=== PATIENT | male | born 1985 | race Caucasian/White ===

== ENCOUNTER 2017-12-01 13:20 | Emergency (ER) | payer OTHER, SELFPAY ==
[2017-12-01] MEDS ORDERED: HYDROCODONE/APAP 5/325 MG TAB ONE (14:01)
--- NOTE | 2017-12-01 14:15 | ER ---
Nurse's Notes [facility] Name: Lefty Lewis Age: 32 yrs Sex: Male : 1985 Arrival Date: 12/01/2017 Time: 13:24 Bed 9 Private MD: None, None Diagnosis: Sprain of ankle Presentation: 12/01 13:27 Presenting complaint: Patient states: Rolled my left ankle about 20 minutes ago, denies la1 pain in foot. Transition of care: patient was not received from another setting of care. Onset of symptoms was December 01, 2017. Risk Assessment: Do you want to hurt yourself or someone else? Patient reports no desire to harm self or others. Initial Sepsis Screen: Does the patient meet any 2 criteria? No. Patient's initial sepsis screen is negative. Does the patient have a suspected source of infection? No. Patient's initial sepsis screen is negative. Care prior to arrival: None. 13:27 Method Of Arrival: Wheelchair la1 13:27 Acuity: HEIDI 4 la1 Historical: - Allergies: 13:28 No Known Allergies; la1 - PMHx: 13:28 Leukemia; Seizures; la1 - Immunization history:: Adult Immunizations up to date. - Social history:: Smoking status: Patient uses tobacco products, denies chronic smoking, but will smoke occasionally. - Ebola Screening: : No symptoms or risks identified at this time. Screenin:45 Abuse screen: Denies threats or abuse. Denies injuries from another. Nutritional iw screening: No deficits noted. Tuberculosis screening: No symptoms or risk factors identified. Fall Risk Fall in past 12 months (25 points). Assessment: 13:42 General: Appears uncomfortable, Behavior is calm, cooperative. Pain: Complains of pain iw in left lateral ankle Pain currently is 9 out of 10 on a pain scale. Neuro: Level of Consciousness is awake, alert, obeys commands, Oriented to person, place, time, situation, Moves all extremities. Cardiovascular: Patient's skin is warm and dry. Respiratory: Respiratory effort is even, unlabored. Musculoskeletal: Range of motion: limited in left ankle Swelling present in left lateral ankle. Vital Signs: 13:28 BP 112 / 64; Pulse 90; Resp 16; Temp 98.2; Pulse Ox 100% on R/A; Weight 86.18 kg; la1 Height 6 ft. 0 in. (182.88 cm); 13:28 Body Mass Index 25.77 (86.18 kg, 182.88 cm) la1 ED Course: 13:24 Patient arrived in ED. mr 13:24 None, None is Private Physician. mr 13:27 Triage completed. la1 13:28 Arm band placed on left wrist. la1 13:42 Beatriz Keene, RN is Primary Nurse. iw 13:44 Rosemarie Rogers FNP-C is [facility]. snw 13:44 Shawn Ryan MD is Attending Physician. snw 14:02 Ankle Left 3 View XRAY In Process Unspecified. EDMS 15:00 Patient has correct armband on for positive identification. iw 15:00 No provider procedures requiring assistance completed. Patient did not have IV access iw during this emergency room visit. Administered Medications: 13:58 Drug: [place] 5 mg-325 mg 1 tabs Route: PO; iw Outcome: 14:14 Discharge ordered by MD. snw 15:03 Discharged to home ambulatory, with crutches, with family. iw 15:03 Condition: good 15:03 Discharge instructions given to patient, family, Instructed on discharge instructions, follow up and referral plans. medication usage, Demonstrated understanding of instructions, follow-up care, medications, Prescriptions given X 2. 15:04 Patient left the ED. iw Signatures: Dispatcher [employer] EDNE Rosemarie Rogers FNP-C FNP-Simona Junior mr Beatriz Keene, RN JAMES iw Redd Alegre RN RN la1
--- NOTE | 2017-12-01 14:15 | EDPHYS ---
Physician Documentation [facility] Name: Lefty Lewis Age: 32 yrs Sex: Male : 1985 Arrival Date: 12/01/2017 Time: 13:24 Bed 9 Private MD: None, None ED Physician Shawn Ryan HPI: 12/01 13:53 This 32 yrs old Male presents to ER via Wheelchair with complaints of Ankle snw Injury. 13:53 The patient presents with pain, that is acute, swelling, tenderness. The complaints snw affect the left ankle. Onset: The symptoms/episode began/occurred suddenly, 1 hour(s) ago. Context: The problem was sustained outdoors, resulted from a mis-step by the patient, The mechanism of injury involved dorsiflexion-extension of the affected ankle. The patient can partially bear weight on the affected extremity. the patient is able to ambulate, with moderate difficulty. Associated signs and symptoms: The patient has no apparent associated signs or symptoms. Severity of symptoms: At their worst the symptoms were moderate, severe. The patient has not experienced similar symptoms in the past. It is unknown whether or not the patient has recently seen a physician. Historical: - Allergies: 13:28 No Known Allergies; la1 - PMHx: 13:28 Leukemia; Seizures; la1 - Immunization history:: Adult Immunizations up to date. - Social history:: Smoking status: Patient uses tobacco products, denies chronic smoking, but will smoke occasionally. - Ebola Screening: : No symptoms or risks identified at this time. ROS: 13:52 Constitutional: Negative for fever, chills, and weight loss, Eyes: Negative for injury, snw pain, redness, and discharge, ENT: Negative for injury, pain, and discharge, Neck: Negative for injury, pain, and swelling, Cardiovascular: Negative for chest pain, palpitations, and edema, Respiratory: Negative for shortness of breath, cough, wheezing, and pleuritic chest pain, Abdomen/GI: Negative for abdominal pain, nausea, vomiting, diarrhea, and constipation, Back: Negative for injury and pain, : Negative for injury, bleeding, discharge, and swelling, Skin: Negative for injury, rash, and discoloration, Neuro: Negative for headache, weakness, numbness, tingling, and seizure. 13:52 MS/extremity: Positive for injury or acute deformity, pain, swelling, of the left lateral ankle. Exam: 13:52 Constitutional: This is a well developed, well nourished patient who is awake, alert, snw and in no acute distress. Head/Face: Normocephalic, atraumatic. Eyes: Pupils equal round and reactive to light, extra-ocular motions intact. Lids and lashes normal. Conjunctiva and sclera are non-icteric and not injected. Cornea within normal limits. Periorbital areas with no swelling, redness, or edema. ENT: Nares patent. No nasal discharge, no septal abnormalities noted. Tympanic membranes are normal and external auditory canals are clear. Oropharynx with no redness, swelling, or masses, exudates, or evidence of obstruction, uvula midline. Mucous membranes moist. Neck: Trachea midline, no thyromegaly or masses palpated, and no cervical lymphadenopathy. Supple, full range of motion without nuchal rigidity, or vertebral point tenderness. No Meningismus. Chest/axilla: Normal chest wall appearance and motion. Nontender with no deformity. No lesions are appreciated. Cardiovascular: Regular rate and rhythm with a normal S1 and S2. No gallops, murmurs, or rubs. Normal PMI, no JVD. No pulse deficits. Respiratory: Lungs have equal breath sounds bilaterally, clear to auscultation and percussion. No rales, rhonchi or wheezes noted. No increased work of breathing, no retractions or nasal flaring. Abdomen/GI: Soft, non-tender, with normal bowel sounds. No distension or tympany. No guarding or rebound. No evidence of tenderness throughout. Back: No spinal tenderness. No costovertebral tenderness. Full range of motion. Skin: Warm, dry with normal turgor. Normal color with no rashes, no lesions, and no evidence of cellulitis. Neuro: Awake and alert, GCS 15, oriented to person, place, time, and situation. Cranial nerves II-XII grossly intact. Motor strength 5/5 in all extremities. Sensory grossly intact. Cerebellar exam normal. Normal gait. Psych: Awake, alert, with orientation to person, place and time. Behavior, mood, and affect are within normal limits. 13:52 Musculoskeletal/extremity: Extremities: grossly normal except: noted in the left lateral ankle: decreased ROM, swelling, tenderness, ROM: limited active range of motion due to pain, in all extremities, Circulation is intact in all extremities. Sensation intact. Vital Signs: 13:28 BP 112 / 64; Pulse 90; Resp 16; Temp 98.2; Pulse Ox 100% on R/A; Weight 86.18 kg; la1 Height 6 ft. 0 in. (182.88 cm); 13:28 Body Mass Index 25.77 (86.18 kg, 182.88 cm) la1 MDM: 13:45 Patient medically screened. snw 14:15 Data reviewed: vital signs, nurses notes. Data interpreted: Pulse oximetry: on room air snw is 100 %. Interpretation: normal. Counseling: I had a detailed discussion with the patient and/or guardian regarding: the historical points, exam findings, and any diagnostic results supporting the discharge/admit diagnosis, radiology results, to return to the emergency department if symptoms worsen or persist or if there are any questions or concerns that arise at home. Special discussion: Based on the history and exam findings, there is no indication for further emergent testing or inpatient evaluation. I discussed with the patient/guardian the need to see the orthopedic surgeon for further evaluation of the symptoms. I discussed with the patient/guardian the need to see the primary care provider for further evaluation of the symptoms. 12/01 13:28 Order name: Ankle Left 3 View XRAY; Complete Time: 14:52 la1 Administered Medications: 13:58 Drug: [place] 5 mg-325 mg 1 tabs Route: PO; iw Disposition: 15:37 Co-signature as Attending Physician, Shawn Ryan MD I agree with the assessment and kdr plan of care. Disposition: 12/01/17 14:14 Discharged to Home. Impression: Sprain of ankle. - Condition is Stable. - Discharge Instructions: Ankle Sprain, Ankle Pain, Cryotherapy. - Prescriptions for Diclofenac Sodium 75 mg Oral Tablet Sustained Release - take 1 tablet by ORAL route 2 times per day; 30 tablet. orphenadrine citrate 100 mg Oral Tablet Sustained Release - take 1 tablet by ORAL route 2 times per day As needed; 20 tablet. - Medication Reconciliation Form, Thank You Letter, Antibiotic Education, Prescription Opioid Use form. - Follow up: Private Physician; When: 2 - 3 days; Reason: Recheck today's complaints, Continuance of care, Re-evaluation by your physician. Follow up: Emergency Department; When: As needed; Reason: Worsening of condition. Signatures: Dispatcher [employer] EDMS Shawn Ryan MD MD kdr Therrien, Shelly, ASSEMBLER METAL [employer]ILDING-C ASSEMBLER [employer]ILDING-Csnw Beatriz Keene, RN RN iw Redd Alegre RN RN la1 Corrections: (The following items were deleted from the chart) 15:02 14:15 Walking boot ordered. snw iw 15:04 14:14 12/01/2017 14:14 Discharged to Home. Impression: Sprain of ankle. Condition is iw Stable. Forms are Medication Reconciliation Form, Thank You Letter, Antibiotic Education, Prescription Opioid Use. Follow up: Private Physician; When: 2 - 3 days; Reason: Recheck today's complaints, Continuance of care, Re-evaluation by your physician. Follow up: Emergency Department; When: As needed; Reason: Worsening of condition. snw
--- NOTE | 2017-12-01 14:47 | RAD REPORT ---
EXAM DESCRIPTION: RAD - Ankle Left 3 View - 12/01/2017 2:00 pm CLINICAL HISTORY: PAIN<Reason For Exam>PAIN Ankle pain, twisting injury COMPARISON: No comparisons<Comparisons>No comparisons FINDINGS: No fracture, dislocation or periosteal reaction. No joint effusion seen. No joint space na rrowing. No soft tissue abnormality. Lateral soft tissue swelling is present. IMPRESSION: Soft tissue swelling with no left ankle fracture.
== END 2017-12-01 15:04 | disposition home or self-care (01) ==
LOC: ER 13:20
DX: S93.402A Sprain of unspecified ligament of left ankle, initial encounter (principal); F17.200 Nicotine dependence, unspecified, uncomplicated; X50.1XXA Overexertion from prolonged static or awkward postures, initial encounter; Y93.01 Activity, walking, marching and hiking; Z85.6 Personal history of leukemia
CPT/HCPCS: 99283

== ENCOUNTER 2018-10-31 19:52 | Emergency (ER) | payer OTHER, SELFPAY ==
[2018-10-31] MEDS ORDERED: TETANUS & DIPHTHERIA TOX,ADULT 0.5 ML VIAL ONE (20:15)
[2018-10-31] MEDS ORDERED: HYDROCODONE/APAP 7.5/325 MG TAB ONE (20:29)
[2018-10-31] MEDS ORDERED: LIDOCAINE 1% MPF 5 ML VIAL ONE (21:16)
--- NOTE | 2018-10-31 21:59 | ER ---
Nurse's Notes [facility] Name: Lefty Lewis Age: 32 yrs Sex: Male : 1985 Arrival Date: 10/31/2018 Time: 19:57 Bed 30 Private MD: Diagnosis: Epilepsy and recurrent seizures;Laceration of lip and oral cavity without foreign body Presentation: 10/31 20:01 Presenting complaint: Significant other states: "He has epilepsy, he had a seizure in aj1 the rest room and fell and hit his face on the cabinet in the bathroom" Girlfriend reports the seizure lasted approximately one minute. Denies missing any recent doses of his seizure medication. Skin tear noted to face, not currently bleeding. Patient also broke his tooth when he fell and his front tooth is loose. Care prior to arrival: None. Mechanism of Injury: Fall from standing position. Trauma event details: Injury occurred in the [facility]. 20:01 Acuity: HEIDI 3 aj1 20:01 Method Of Arrival: Ambulatory aj1 20:06 Transition of care: patient was not received from another setting of care. Onset of aj1 symptoms was October 31, 2018 at 19:15. Risk Assessment: Do you want to hurt yourself or someone else? Patient reports no desire to harm self or others. Initial Sepsis Screen: Does the patient meet any 2 criteria? No. Patient's initial sepsis screen is negative. Does the patient have a suspected source of infection? No. Patient's initial sepsis screen is negative. Triage Assessment: 20:08 General: Appears in no apparent distress. comfortable, Behavior is calm, cooperative, aj1 appropriate for age. Pain: Complains of pain in face Pain does not radiate. Pain currently is 8 out of 10 on a pain scale. Neuro: Level of Consciousness is awake, alert, obeys commands, Oriented to person, place, time, situation, Seizure activity reported prior to arrival. Seizure lasted approximately 1 minutes. Cardiovascular: Patient's skin is warm and dry. Respiratory: Airway is patent Respiratory effort is even, unlabored, Respiratory pattern is regular, symmetrical. Trauma Activation: Not Applicable Physician: ED Physician; Name: ; Notified At: ; Arrived At: Physician: General Surgeon; Name: ; Notified At: ; Arrived At: Physician: Radiology; Name: ; Notified At: ; Arrived At: Physician: Respiratory; Name: ; Notified At: ; Arrived At: Physician: Lab; Name: ; Notified At: ; Arrived At: Historical: - Allergies: 20:07 No Known Allergies; aj1 - Home Meds: 20:07 Clonazepam Oral [Active]; Dilantin Oral 3 tab nightly [Active]; aj1 - PMHx: 20:07 Leukemia; Seizures; aj1 - Immunization history: Last tetanus immunization: unknown. - Social history:: Smoking status: Patient/guardian denies using tobacco. - Ebola Screening: : Patient denies travel to an Ebola-affected area in the 21 days before illness onset. Screenin:01 Abuse screen: Denies threats or abuse. Denies injuries from another. Tuberculosis aj1 screening: No symptoms or risk factors identified. 20:10 Nutritional screening: No deficits noted. Fall Risk Fall in past 12 months (25 points). ch Secondary diagnosis (15 points) No IV (0 pts). Ambulatory Aid- None/Bed Rest/Nurse Assist (0 pts). Gait- Normal/Bed Rest/Wheelchair (0 pts) Mental Status- Oriented to own ability (0 pts). Total Ramesh Fall Scale indicates Low Risk Score (25-44 pts). Fall prevention measures have been instituted. Side Rails Up X 2 Family Present and informed to notify staff if they need to leave bedside As available Patient and Family Educated on Fall Prevention Program and strategies. Primary Survey: 20:01 NO uncontrolled hemorrhage observed. A: The patient is alert. Airway: patent. aj1 Breathing/Chest: Respiratory pattern: regular, Respiratory effort: spontaneous, unlabored. Circulation: Skin color: pink. Disability Alert. 20:30 Exposure/Environment: All clothing and personal items were removed. Forensic evidence ch collection is not deemed to be indicated at this time. Items placed in patient belonging bag. There is no evidence of uncontrolled external bleeding. Obvious injury(ies) are noted at this time: pt has injuries to face only A warming method has been applied: A warm blanket has been provided to the patient. Reassessment Airway Airway Patent Breathing/Chest Respiratory pattern Regular Respiratory effort Spontaneous Unlabored Breath sounds Clear Chest inspection Symmetrical Circulation Pulses Palpable Color [place] Temperature Warm. Assessment: 20:20 Injury Description: pt has skin tear, superficial to R upper eye lid and eyebrown. pt ch has small laceration to R upper eyelid, right above lashes. wound is not bleeding. pt has swelling to R eyebrow, under eye, eye lids, with bruising. pt has superficial abrasions to R cheek. pt has laceration to lateral corner of R upper lip, deep. 20:40 Reassessment: Patient appears in no apparent distress at this time. Patient and/or ch family updated on plan of care and expected duration. Pain level reassessed. Patient is alert, oriented x 3, equal unlabored respirations, skin warm/dry/pink. 21:59 Reassessment: Patient appears in no apparent distress at this time. Patient and/or ch family updated on plan of care and expected duration. Pain level reassessed. Patient is alert, oriented x 3, equal unlabored respirations, skin warm/dry/pink. pt c/o pain to his tooth. Patient states feeling better. Patient states symptoms have improved. Neuro: No deficits noted. Respiratory: No deficits noted. GI: No signs and/or symptoms were reported involving the gastrointestinal system. : No signs and/or symptoms were reported regarding the genitourinary system. EENT: Eyes are tearing on right eye. Derm: Skin is healthy with good turgor, Skin is pink, warm \\T\\ dry. Musculoskeletal: No signs and/or symptoms reported regarding the musculoskeletal system. Circulation, motion, and sensation intact. Injury Description: Laceration sustained to upper lip and mouth is jagged, 0.5 to 2.5 cm long, not bleeding, was sustained 2-4 hours ago. no active bleeding noted at this time. 22:12 Reassessment: Patient appears in no apparent distress at this time. Patient and/or ch family updated on plan of care and expected duration. Pain level reassessed. Patient is alert, oriented x 3, equal unlabored respirations, skin warm/dry/pink. Patient states feeling better. Patient states symptoms have improved. Vital Signs: 20:01 BP 117 / 73; Pulse 101; Resp 20; Temp 98.1; Pulse Ox 99% on R/A; Weight 90.72 kg (R); aj1 Height 6 ft. 0 in. (182.88 cm) (R); Pain 8/10; 21:00 BP 110 / 54; Pulse 82; Resp 16; Pulse Ox 99% on R/A; Pain 8/10; ch 22:04 BP 115 / 66; Pulse 74; Resp 16; Temp 98.2; Pulse Ox 99% on R/A; Pain 6/10; ch 20:01 Body Mass Index 27.12 (90.72 kg, 182.88 cm) aj1 Allison Coma Score: 20:01 Eye Response: spontaneous(4). Verbal Response: oriented(5). Motor Response: obeys aj1 commands(6). Total: 15. 20:06 Eye Response: spontaneous(4). Verbal Response: oriented(5). Motor Response: obeys kb commands(6). Total: 15. Trauma Score (Adult): 20:01 Eye Response: spontaneous(1); Verbal Response: oriented(1); Motor Response: obeys aj1 commands(2); Systolic BP: > 89 mm Hg(4); Respiratory Rate: 10 to 29 per min(4); Allison Score: 15; Trauma Score: 12 ED Course: 19:57 Patient arrived in ED. ds1 20:01 Patient has correct armband on for positive identification. aj1 20:01 Patient maintains SpO2 saturation greater than 95% on room air. aj1 20:04 Triage completed. aj1 20:06 Elsy Huber FNP-C is PHCP. kb 20:06 Rj Hampton MD is Attending Physician. kb 20:07 Arm band placed on. aj1 20:08 Patient placed in an exam room. aj1 20:39 Tyra Rivera, JAMES is Primary Nurse. 20:43 Wound care: to abrasion, located on mouth and middle aspect of right eyebrow and right ch eye was cleaned with with NS per Elsy orders, dressed with Neosporin, steri strips, ice pack applied. Patient tolerated well. 21:50 Assist provider with laceration repair on upper lip that was 2.5 cm. or less using sutures. Set up tray. Performed by Elsy ERAZO Dressed with Neosporin, Patient tolerated well. Patient did not have IV access during this emergency room visit. Administered Medications: 20:18 Drug: Tetanus-Diphtheria Toxoid Adult 0.5 ml {Paper Machine Backtender: [employer]. Exp: 06/22/2020. Lot #: [id number]. } Route: IM; Site: left deltoid; 20:51 Follow up: Response: No adverse reaction 20:30 Drug: [place] (7.5 mg-325 mg) 1 tabs Route: PO; 20:51 Follow up: Response: No adverse reaction; Pain is decreased Outcome: 21:50 Discharged to home ambulatory, with family. 21:50 Condition: improved 21:50 Discharge instructions given to patient, family, Instructed on discharge instructions, follow up and referral plans. medication usage, wound care, Demonstrated understanding of instructions, follow-up care, medications, wound care, Prescriptions given X 1. 21:58 Discharge ordered by . kiko 22:22 Patient left the ED. Signatures: Elsy Huber, WASHROOM ATTENDANT-C WASHROOM ATTENDANT-Tyra Elaine RN RN Paulina Blue RN RN aj1 Dora Burton1 Corrections: (The following items were deleted from the chart) 20:04 20:01 Presenting complaint: Significant other states: "He has epilepsy, he had a aj1 seizure in the rest room and fell and hit his face on the cabinet in the bathroom" Girlfriend reports the seizure lasted approximately one minute. Denies missing any recent doses of his seizure medication. Laceration noted to face, not currently bleeding. Patient also broke his tooth when he fell and his front tooth is loose aj1
--- NOTE | 2018-10-31 21:59 | EDPHYS ---
Physician Documentation [facility] Name: Lefty Lewis Age: 32 yrs Sex: Male : 1985 Arrival Date: 10/31/2018 Time: 19:57 Bed 30 Private MD: ED Physician Rj Hampton HPI: 10/31 20:09 This 32 yrs old Male presents to ER via Ambulatory with complaints of Facial kb Injury, Fall Injury, Seizure. 20:09 The patient presents after having a single isolated seizure, that lasted 1 minute(s). kb Character of seizure(s): Loss of consciousness: the patient experienced loss of consciousness, Motor activity: generalized, shaking all over, Incontinence: none, Apnea: the patient did not experience apnea, Circulation: the patient did not experience evidence of pulse disturbance. Seizure onset: just prior to arrival. Context: the seizure(s) was witnessed, by a significant other, occurred at home, occurred while the patient was standing, Contributing factors: unknown. Seizure Hx: Original onset: since childhood,\E\ Last seizure: The patient's last seizure was approximately 3 month(s) ago. Associated injury: Head/face: abrasion, pain. Current symptoms: Currently, the patient is not experiencing any symptoms, the patient feels back to baseline, no decreased level of consciousness, no confusion, no dysphasia, no headache, no paralysis, no visual changes. The patient has experienced similar episodes in the past, chronically. The patient has not recently seen a physician. Historical: - Allergies: 20:07 No Known Allergies; aj1 - Home Meds: 20:07 Clonazepam Oral [Active]; Dilantin Oral 3 tab nightly [Active]; aj1 - PMHx: 20:07 Leukemia; Seizures; aj1 - Immunization history: Last tetanus immunization: unknown. - Social history:: Smoking status: Patient/guardian denies using tobacco. - Ebola Screening: : Patient denies travel to an Ebola-affected area in the 21 days before illness onset. ROS: 20:08 Constitutional: Negative for fever, chills, and weight loss, ENT: Negative for injury, kb pain, and discharge, Neck: Negative for injury, pain, and swelling, Cardiovascular: Negative for chest pain, palpitations, and edema, Respiratory: Negative for shortness of breath, cough, wheezing, and pleuritic chest pain, Abdomen/GI: Negative for abdominal pain, nausea, vomiting, diarrhea, and constipation, MS/Extremity: Negative for injury and deformity. 20:08 Skin: Positive for abrasion(s), of the middle aspect of right eyebrow. 20:08 Neuro: Positive for seizure activity. Exam: 20:06 Constitutional: This is a well developed, well nourished patient who is awake, alert, kb and in no acute distress. Neck: Trachea midline, no thyromegaly or masses palpated, and no cervical lymphadenopathy. Supple, full range of motion without nuchal rigidity, or vertebral point tenderness. No Meningismus. Chest/axilla: Normal chest wall appearance and motion. Nontender with no deformity. No lesions are appreciated. Cardiovascular: Regular rate and rhythm with a normal S1 and S2. No gallops, murmurs, or rubs. Normal PMI, no JVD. No pulse deficits. Respiratory: Lungs have equal breath sounds bilaterally, clear to auscultation and percussion. No rales, rhonchi or wheezes noted. No increased work of breathing, no retractions or nasal flaring. Abdomen/GI: Soft, non-tender, with normal bowel sounds. No distension or tympany. No guarding or rebound. No evidence of tenderness throughout. MS/ Extremity: Pulses equal, no cyanosis. Neurovascular intact. Full, normal range of motion. Neuro: Awake and alert, GCS 15, oriented to person, place, time, and situation. Cranial nerves II-XII grossly intact. Motor strength 5/5 in all extremities. Sensory grossly intact. Cerebellar exam normal. Normal gait. 20:06 Head/face: Noted is no obvious of injury or deformity except abrasion(s), that are mild, of the middle aspect of right eyebrow, a laceration(s), that is superficial, of the upper lip. 20:06 ENT: Dental exam: loose tooth. Vital Signs: 20:01 BP 117 / 73; Pulse 101; Resp 20; Temp 98.1; Pulse Ox 99% on R/A; Weight 90.72 kg (R); aj1 Height 6 ft. 0 in. (182.88 cm) (R); Pain 8/10; 21:00 BP 110 / 54; Pulse 82; Resp 16; Pulse Ox 99% on R/A; Pain 8/10; ch 22:04 BP 115 / 66; Pulse 74; Resp 16; Temp 98.2; Pulse Ox 99% on R/A; Pain 6/10; ch 20:01 Body Mass Index 27.12 (90.72 kg, 182.88 cm) aj1 Allison Coma Score: 20:01 Eye Response: spontaneous(4). Verbal Response: oriented(5). Motor Response: obeys aj1 commands(6). Total: 15. 20:06 Eye Response: spontaneous(4). Verbal Response: oriented(5). Motor Response: obeys kb commands(6). Total: 15. Trauma Score (Adult): 20:01 Eye Response: spontaneous(1); Verbal Response: oriented(1); Motor Response: obeys aj1 commands(2); Systolic BP: > 89 mm Hg(4); Respiratory Rate: 10 to 29 per min(4); Rantoul Score: 15; Trauma Score: 12 Laceration: 21:57 Wound Repair of 1.5cm ( 0.6in ) subcutaneous laceration to upper lip. Linear shaped.. kb Distal neuro/vascular/tendon intact. Anesthesia: Wound infiltrated with 1 mls of 1% lidocaine. Wound prep: Moderate cleansing, Wound irrigation. Skin closed with 4 5-0 Vicryl using interrupted sutures and sterile technique. Patient tolerated well. MDM: 20:06 Patient medically screened. 20:06 Data reviewed: vital signs, nurses notes. Data interpreted: Pulse oximetry: on room air kb is 99 %. Interpretation: normal. Refusal of service: The patient/guardian displays adequate decision making capability and despite a detailed discussion of alternatives, benefits, risks, and consequences refuses: CT Scan, Pt does not want CT of head/brain or facial bones. 20:18 ED course: Discussed diagnostic studies with pt. Pt would rather not have them done at this time. Has to follow up with his neurologist soon for blood work anyway. Pt states he feels like he normally does after a seizure and does not think it is necessary. Educated to return for any concerns and we could do any necessary tests at that time. Verbal understanding received from pt and significant other. . 21:57 Counseling: I had a detailed discussion with the patient and/or guardian regarding: the historical points, exam findings, and any diagnostic results supporting the discharge/admit diagnosis, the need for outpatient follow up, a neurologist, to return to the emergency department if symptoms worsen or persist or if there are any questions or concerns that arise at home. 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 Exp: 06/22/2020. Lot #: [id number]. } Route: IM; Site: left deltoid; 20:51 Follow up: Response: No adverse reaction 20:30 Drug: Homer (7.5 mg-325 mg) 1 tabs Route: PO; 20:51 Follow up: Response: No adverse reaction; Pain is decreased Disposition: 10/31/18 21:58 Discharged to Home. Impression: Epilepsy and recurrent seizures, Laceration of lip and oral cavity without foreign body. - Condition is Stable. - Discharge Instructions: Mouth Laceration, Kcem-ha-Fpri, Seizure, Adult, [id number]-eb-[id number]. - Prescriptions for Tylenol- Codeine #3 300-30 mg Oral Tablet - take 1 tablet by ORAL route every 6 hours As needed; 15 tablet. - Medication Reconciliation Form, Thank You Letter, Antibiotic Education, Prescription Opioid Use, Work release form form. - Follow up: Emergency Department; When: As needed; Reason: Worsening of condition. Follow up: Private Physician; When: 2 - 3 days; Reason: Recheck today's complaints, Continuance of care, Re-evaluation by your physician. Signatures: Elsy Huber, PIPE PROCESSOR-C PIPE PROCESSOR-Ckb Tyra Rivera, JAMES RN Paulina Blue RN RN aj1 Corrections: (The following items were deleted from the chart) 20:31 20:18 ED course: Discussed diagnostic studies with pt. Pt would rather not have them kb done at this time. Pt states he feels like he normally does after a seizure and does not think it is necessary. Educated to return for any concerns and we could do any necessary tests at that time. Verbal understanding received from pt and significant other. . kb 21:57 20:06 Head/face: Noted is no obvious of injury or deformity except abrasion(s), that kb are mild, of the middle aspect of right eyebrow, kb 22:22 21:58 10/31/2018 21:58 Discharged to Home. Impression: Epilepsy and recurrent seizures; ch Laceration of lip and oral cavity without foreign body. Condition is Stable. Forms are Work release form, Medication Reconciliation Form, Thank You Letter, Antibiotic Education, Prescription Opioid Use. Follow up: Emergency Department; When: As needed; Reason: Worsening of condition. Follow up: Private Physician; When: 2 - 3 days; Reason: Recheck today's complaints, Continuance of care, Re-evaluation by your physician. kb
== END 2018-10-31 22:22 | disposition home or self-care (01) ==
LOC: ER 19:52
PROC: 0CQ0XZZ Repair Upper Lip, External Approach (ICD-10-PCS; principal; 2018-10-31)
DX: S01.511A Laceration without foreign body of lip, initial encounter (principal); S01.512A Laceration without foreign body of oral cavity, initial encounter; W19.XXXA Unspecified fall, initial encounter; Y93.9 Activity, unspecified; Y92.009 Unspecified place in unspecified non-institutional (private) residence as the place of occurrence of the external cause; Z23 Encounter for immunization
CPT/HCPCS: 90471; 90714; 99284

== ENCOUNTER → 2023-05-28 | Emergency (ER) | payer SELFPAY ==
--- OUTSIDE RECORDS SUMMARY | 2023-05-28 08:53 | XMS REPORT | Continuity of Care Document ---
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 [id number] 2021 00:00:00 Problems Condition Name Condition Details Condition Category Status Onset Date Resolution Date Last Treatment Date Treating Clinician Comments Source [id number] Gastroesop hageal reflux disease without esophagiti s Problem [facility] [id number] Seizure disorder Problem [facility] [id number] ALL (acute lymphoblas tic leukemia of ) Problem [facility] [id number] History of acute lymphoblas tic leukemia (ALL) Problem [facility] [id number] Hyperlipid emia, unspecifie d hyperlipid emia type Problem [facility] Allergies, Adverse Reactions, Alerts Allergy Name Allergy Type Status Severity Reaction(s) Onset Date Inactive Date Treating Clinician Comments Source NO KNOWN ALLERGIE S Drug Class Active [facility] Social History Social Habit Start Date Stop Date Quantity Comments Source Sex Assigned At [facility] History of Tobacco Use [facility] Smoking Status Start Date Stop Date Source Unknown if ever smoked [facility] Never Smoker [facility] Medications Ordered Medication Name Filled Medication Name Start Date Stop Date Current Medication? Ordering Clinician Indication Dosage Frequency Signature (SIG) Comments Components Source Atorvastati n Calcium 40 MG Atorvastati n Calcium 40 MG 08-23 00:00: 00 No 1{table t} QD Atorvastat in Calcium 40 MG Atorvastati n Calcium 40 MG Atorvastati n Calcium 40 MG 2021-0 08-23 00:00: 00 No 1{table t} QD Atorvastat in Calcium 40 MG Atorvastati n Calcium 40 MG Atorvastati n Calcium 40 MG 08-23 00:00: 00 No 1{table t} QD Atorvastat in Calcium 40 MG clonazePAM 0.5 MG clonazePAM 0.5 MG No 1{table t_at_be dtime} QD clonazePAM 0.5 MG Vitamin D Vitamin D No Vitamin D Phenytoin Sodium Extended 300 MG Phenytoin Sodium Extended 300 MG No 1{capsu le} QD Phenytoin Sodium Extended 300 MG Centrum Men - Centrum Men - No Centrum Men - Zonisamide 100 MG Zonisamide 100 MG No 1{capsu le} TID Zonisamide 100 MG Phenytoin Sodium Extended 300 MG Phenytoin Sodium Extended 300 MG No 1{capsu le} QD Phenytoin Sodium Extended 300 MG Centrum Men - Centrum Men - No Centrum Men - clonazePAM 0.5 MG clonazePAM 0.5 MG No 1{table t_at_be dtime} QD clonazePAM 0.5 MG Zonisamide 100 MG Zonisamide 100 MG No 1{capsu le} TID Zonisamide 100 MG Vitamin D Vitamin D No Vitamin D Centrum Men - Centrum Men - No Centrum Men - Zonisamide 100 MG Zonisamide 100 MG No 1{capsu le} TID Zonisamide 100 MG clonazePAM 0.5 MG clonazePAM 0.5 MG No 1{table t_at_be dtime} QD clonazePAM 0.5 MG Phenytoin Sodium Extended 300 MG Phenytoin Sodium Extended 300 MG No 1{capsu le} QD Phenytoin Sodium Extended 300 MG Vitamin D Vitamin D No Vitamin D Centrum Men - Centrum Men - No Centrum Men - Zonisamide 100 MG Zonisamide 100 MG No 1{capsu le} TID Zonisamide 100 MG clonazePAM 0.5 MG clonazePAM 0.5 MG No 1{table t_at_be dtime} QD clonazePAM 0.5 MG Phenytoin Sodium Extended 300 MG Phenytoin Sodium Extended 300 MG No 1{capsu le} QD Phenytoin Sodium Extended 300 MG Vitamin D Vitamin D No Vitamin D Vital Signs Vital Name Observation Time Observation Value Comments S ck height 2021-08-23 08:20:00 72 [in_i] Commo n [facility] weight 2021-08-23 08:20:00 219.2 [lb_av] Co [facility] temperature 2021-08-23 08:20:00 97.9 [degF] Com [facility] bmi 2021-08-23 08:20:00 29.73 kg/m2 Comm on [facility] oximetry 2021-08-23 08:20:00 99 % Commo n [facility] respiratory rate 2021-08-23 08:20:00 16 /min [facility] blood pressure systolic 2021-08-23 08:20:00 132 mm[Hg] [facility] blood pressure diastolic 2021-08-23 08:20:00 78 mm[Hg] [facility] height 2021-08-02 15:40:00 72 [in_i] Commo n [facility] weight 2021-08-02 15:40:00 218.6 [lb_av] Co [facility] temperature 2021-08-02 15:40:00 97.7 [degF] Com [facility] bmi 2021-08-02 15:40:00 29.64 kg/m2 Comm on [facility] oximetry 2021-08-02 15:40:00 99 % Commo n [facility] respiratory rate 2021-08-02 15:40:00 16 /min [facility] blood pressure systolic 2021-08-02 15:40:00 124 mm[Hg] [facility] blood pressure diastolic 2021-08-02 15:40:00 80 mm[Hg] [facility] Procedures Procedure Date / Time Performed Performing Clinicia n Source XR WRIST 3+ VW LEFT 2021-08-04 16:54:00 Naima Hassan [facility] Encounters Start Date/Time End Date/Time Encounter Type Admission Type Attending [facility] Care Facility Care Department Encounter ID Source 2021-10-19 08:04:01 Outpatient [facility] [id number] [facility] 2021-10-07 10:17:02 Outpatient Hassan Naima [facility] [id number] [facility] 2021-08-02 14:59:05 Outpatient Naima Hassan [facility] [id number] [facility] 2023-04-24 16:53:57 2023-04-24 16:53:57 Outpatient SFA SFA [id number] Willam Vaughan Khoa 2022-11-06 15:30:49 2022-11-06 15:30:49 Outpatient SFA SFA [id number] Willam Vaughan Khoa 2022-07-14 08:18:26 2022-07-14 08:18:26 Outpatient SFA SFA [id number] Willam Vaughan Khoa 2022-07-13 16:33:19 2022-07-13 16:33:19 Outpatient SFA SFA [id number] Willam Vaughan Khoa 2022-07-12 15:03:22 2022-07-12 15:03:22 Outpatient SFA SFA [id number] Willam Vaughan Khoa 2022-07-11 00:00:00 2022-07-11 00:00:00 (TEL) [facility] [id number] [facility] 2021-08-23 00:00:00 2021-08-23 00:00:00 OFFICE VISIT ESTAB PT LEVEL 3 [facility] [id number] [facility] 2021-08-23 00:00:00 2021-08-23 00:00:00 (TEL) [facility]LMLC STL[facility] [id number] [facility] 2021-08-04 11:40:59 2021-08-04 23:59:00 Outpatient R RADIOLOGY [facility] [id number] [facility] 2021-08-04 11:30:00 2021-08-04 23:59:00 Hospital Encounter Radiology [facility] [id number] [facility] 2021-08-02 00:00:00 2021-08-02 00:00:00 (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 New pathology staff will provide uninterrupted, excellent patient care and clinical consultation. See URL: [email or web address]. UNLESS OTHERWISE INDICATED, ALL TESTING PERFORMED AT [facility] [address] [place] [id number] CEMENT PAVER: GIOVANNI ROACH M.D. CLIA NUMBER [id number] [facility]. [id number] COMPREHENSIVE METABOLIC [id number] 03:59:26* Test Item Value Reference Range Interpretation Comme nts GLUCOSE (test code = 2216) 94 MG/DL 70-99 BUN (test code = 2207) 18 MG/DL 6-20 CREATININE (test code = 2213) 0.98 MG/DL 0.80-1.40 eGFR (2020 CKD-EPI) (test code = ) 104 ML/MIN/1.73 >60 CALC BUN/CREAT (test code = 2234) 18 RATIO 6-28 SODIUM (test code = 2230) 142 MEQ/L 133-146 POTASSIUM (test code = 2227) 4.8 MEQ/L 3.5-5.4 CHLORIDE (test code = 2214) 106 MEQ/L 95-107 CARBON DIOXIDE (test code = 2205) 27 MEQ/L 19-31 CALCIUM (test code = 2208) 9.9 MG/DL 8.5-10.5 PROTEIN, TOTAL (test code = 2228) 7.4 G/DL 6.1-8.3 ALBUMIN (test code = 2200) 4.9 G/DL 3.5-5.2 CALC GLOBULIN (test code = 2239) 2.5 G/DL 1.9-3.7 CALC A/G RATIO (test code = 2233) 2.0 RATIO 1.0-2.6 BILIRUBIN, TOTAL (test code = 2206) 0.3 MG/DL See_Comment [Automated me ssage] The system which generated this result transmitted reference range: <=1.2. The reference range was not used to interpret this result as normal/abnormal. ALKALINE PHOSPHATASE (test code = 2203) 168 U/L 40-112 H AST (test code = 2217) 23 U/L 9-50 ALT (test code = 2219) 45 U/L 5-50 LIPID [id number] 03:59:26* Test Item Value Reference Range Interpretation Comme nts CHOLESTEROL (test code = 0) 270 MG/DL <200 H TRIGLYCERIDES (test code = 2231) 142 MG/DL <150 HDL CHOLESTEROL (test code = 2219) 37 MG/DL >39 L CALC LDL CHOL (test code = 2236) 203 MG/DL <100 H NOTE: CALCULATED LDL IS BASED ON JUAN-SETH METHOD WHICHINCLUDES ADJUSTABLE TRIGLYCERIDE:VLDL CHOLESTEROL RATIO.THIS FACTOR VARIES BY MEASURED TRIGLYCERIDE AND NON-HDLCHOLESTEROL CONCENTRATIONS WITH INCREASED CALCULATED LDL SEENIN HIGHER TRIGLYCERIDE OR LOWER NON-HDL SPECIMENS. FOR MOREINFORMATION, SEE CLIENT ANNOUNCEMENT AT [email or web address] RATIO LDL/HDL (test code = 2238) 5.49 RATIO <3.55 H CBC W/AUTO DIFF WITH [id number] 02:02:22* Test Item Value Reference Range Interpretation Comme nts WBC (test code = 1001) 5.0 K/UL 3.5-11.0 RBC (test code = 1002) 5.14 M/UL 4.50-6.10 HEMOGLOBIN (test code = 1003) 15.4 G/DL 13.5-17.0 HEMATOCRIT (test code = 1004) 45.3 % 40.0-51.0 MCV (test code = 1005) 88.1 fL 80.0-99.0 MCH (test code = 1006) 30.0 PG 25.0-33.0 MCHC (test code = 1007) 34.0 G/DL 31.0-36.0 RDW (test code = 1038) 12.9 % 11.5-15.0 NEUTROPHILS (test code = 1008) 57.2 % LYMPHOCYTES (test code = 1010) 31.4 % MONOCYTES (test code = 1011) 8.4 % EOSINOPHILS (test code = 1012) 1.8 % BASOPHILS (test code = 1013) 0.8 % IMMATURE GRANULOCYTES (test code = 1036) 0.4 % NUCLEATED RBCS (test code = 1065) 0.0 /100 WBC'S See_Comment [Automated [employer]] The system which generated this result transmitted reference range: 0.0. The reference range was not used to interpret this result as normal/abnormal. PLATELET COUNT (test code = 1015) 356 K/UL 130-400 ABSOLUTE NEUTROPHILS (test code = 1066) 2.86 K/UL 1.50-7.50 ABSOLUTE LYMPHOCYTES (test code = 1067) 1.57 K/UL 1.00-4.00 ABSOLUTE MONOCYTES (test code = 1068) 0.42 K/UL 0.20-1.00 ABSOLUTE EOSINOPHILS (test code = 1040) 0.09 K/UL 0.00-0.50 ABSOLUTE BASOPHILS (test code = 1069) 0.04 K/UL 0.00-0.20 ABS IMMATURE GRANULOCYTES (test code = 1020) 0.02 K/UL 0.00-0.10 ABS NUCLEATED RBCS (test code = 40931) 0.00 K/UL 0.00-0.11
[2023-05-28 09:17] LABS: Hematocrit 42.8 % (39.6-49.0); Lymphocytes % 22.8 % (15.3-44.8); MCV 90.6 fL (80-100); MPV 8.2 fL (7.6-11.3); Platelets 244 thou/uL (152-406); RBC Red Blood Cell Count 4.73 M/uL (4.33-5.43)
[2023-05-28 09:32] LABS: Albumin 4.1 g/dL (3.4-5.0); Bilirubin Total 0.2 mg/dL (0.2-1.0); Potassium 4.4 mEq/L (3.5-5.1); Protein, Total 7.3 g/dL (6.4-8.2)
--- NOTE | 2023-05-28 09:47 | ER ---
Nurse's Notes [facility] Name: Lefty Lewis Age: 37 yrs Sex: Male : 1985 Arrival Date: 05/28/2023 Time: 08:50 Bed 7 Private MD: Diagnosis: Breakthrough seizure Presentation: 05/28 08:54 Chief complaint: EMS states: witnessed seizure at work, pt was seat belted into iw passenger side of vehicle, has hx of seizures, not missed any doses of meds, last seizure was 6 months ago , pt c/o mild headache, did not hi head, A\T\O X 4. Coronavirus screen: At this time, the client does not indicate any symptoms associated with coronavirus-19. Ebola Screen: Patient negative for fever greater than or equal to 101.5 degrees Fahrenheit, and additional compatible Ebola Virus Disease symptoms Patient denies exposure to infectious person. Patient denies travel to an Ebola-affected area in the 21 days before illness onset. No symptoms or risks identified at this time. Initial Sepsis Screen: Does the patient meet any 2 criteria? No. Patient's initial sepsis screen is negative. Does the patient have a suspected source of infection? No. Patient's initial sepsis screen is negative. Risk Assessment: Do you want to hurt yourself or someone else? Patient reports no desire to harm self or others. Onset of symptoms was May 28, 2023. 08:54 Method Of Arrival: EMS: [facility] iw 08:54 Acuity: HEIDI 3 iw Historical: - Allergies: 08:56 No Known Allergies; iw - Home Meds: 08:56 phenytoin 100 mg Oral 4 tabs daily [Active]; zonisamide 100 mg oral capsule 4 caps iw daily [Active]; - PMHx: 08:56 Leukemia; Seizures; iw - Immunization history:: Adult Immunizations not up to date. - Social history:: Smoking status: Patient reports the use of cigarette tobacco products, denies chronic smoking, but will smoke occasionally. - Family history:: not pertinent. Screenin:01 [facility] ED Fall Risk Assessment (Adult) Score/Fall Risk Level 0 - 2 = Low Risk. Abuse iw screen: Denies threats or abuse. Denies injuries from another. Nutritional screening: No deficits noted. Tuberculosis screening: No symptoms or risk factors identified. Assessment: 09:01 General: Appears in no apparent distress. Behavior is calm, cooperative. Pain: iw Complains of pain in head. Neuro: Level of Consciousness is awake, alert, obeys commands, Oriented to person, place, time, situation, Seizure activity reported prior to arrival. Neuro: Moves all extremities. Full function. Cardiovascular: Patient's skin is warm and dry. Respiratory: Respiratory effort is even, unlabored, Respiratory pattern is regular, symmetrical. GI: Abdomen is flat, non-distended. EENT: No signs and/or symptoms were reported regarding the EENT system. Derm: Skin is intact, is healthy with good turgor. Musculoskeletal: Range of motion: intact in all extremities. 10:17 Reassessment: Patient appears in no apparent distress at this time. Patient and/or iw family updated on plan of care and expected duration. Pain level reassessed. Patient is alert, oriented x 3, equal unlabored respirations, skin warm/dry/pink. Patient states feeling better. Patient states symptoms have improved. Vital Signs: 08:54 BP 125 / 81; Pulse 99; Resp 16; Pulse Ox 100% on R/A; Weight 95.25 kg; Height 6 ft. 0 iw in. ; 10:17 BP 115 / 72; Pulse 74; Resp 16; Pulse Ox 99% on R/A; iw 08:54 Body Mass Index 28.48 (95.25 kg, 182.88 cm) iw Allison Coma Score: 10:20 Eye Response: spontaneous(4). Motor Response: obeys commands(6). Verbal Response: iw oriented(5). Total: 15. ED Course: 08:54 Patient arrived in ED. iw 08:54 Beatriz Keene, RN is Primary Nurse. iw 08:55 Deandre Garnica MD is Attending Physician. rt 08:56 Triage completed. iw 08:58 Arm band placed on. iw 09:02 Seizure precautions initiated. Client placed on continuous cardiac and pulse oximetry iw monitoring. NIBP monitoring applied. 09:02 No provider procedures requiring assistance completed. iw 09:15 Initial lab(s) drawn, by me, sent to lab. Inserted saline lock: 20 gauge in right iw antecubital area, using aseptic technique. Blood collected. 10:18 IV discontinued, intact, bleeding controlled, No redness/swelling at site. Pressure iw dressing applied. 10:20 Provided Education on: . iw Administered Medications: No medications were administered Medication: 09:02 VIS not applicable for this client. iw Outcome: 09:46 Discharge ordered by MD. rt 10:18 Discharged to home ambulatory, iw 10:18 Condition: good 10:18 Discharge instructions given to patient, Instructed on discharge instructions, follow up and referral plans. Demonstrated understanding of instructions, follow-up care, 10:20 Patient left the ED. iw Signatures: Beatriz Keene RN RN iw Deandre Garnica MD MD rt Corrections: (The following items were deleted from the chart) : 08:30 Inserted saline lock: 20 gauge in right antecubital area, using aseptic iw technique. Blood collected. iw : 08:30 Initial lab(s) drawn, by me, sent to lab. iw iw
--- NOTE | 2023-05-28 09:47 | EDPHYS ---
Physician Documentation [facility] Name: Lefty Lewis Age: 37 yrs Sex: Male : 1985 Arrival Date: 05/28/2023 Time: 08:50 Bed 7 Private MD: ED Physician Deandre Garnica HPI: 05/28 08:58 This 37 yrs old Male presents to ER via EMS with complaints of Seizure. rt 08:58 Patient presents to the ED with 1 seizure episode. His seizures are reasonably rt well-controlled with Zonegran Dilantin. Patient was in the passenger side of a vehicle, had a brief seizure with postictal state. Denies any trauma. States that the postictal state seems improving, patient is was at baseline. He denies any complaints at this time, reports medication adherence and denies recent illness. Symptoms are moderate in severity, no other aggravating elevating factors.. Historical: - Allergies: 08:56 No Known Allergies; iw - Home Meds: 08:56 phenytoin 100 mg Oral 4 tabs daily [Active]; zonisamide 100 mg oral capsule 4 caps iw daily [Active]; - PMHx: 08:56 Leukemia; Seizures; iw - Immunization history:: Adult Immunizations not up to date. - Social history:: Smoking status: Patient reports the use of cigarette tobacco products, denies chronic smoking, but will smoke occasionally. - Family history:: not pertinent. ROS: 08:58 Constitutional: Negative for fever, chills, and weight loss, Eyes: Negative for injury, rt pain, redness, and discharge, Cardiovascular: Negative for chest pain, palpitations, and edema, Respiratory: Negative for shortness of breath, cough, wheezing, and pleuritic chest pain, Abdomen/GI: Negative for abdominal pain, nausea, vomiting, diarrhea, and constipation, MS/Extremity: Negative for injury and deformity, Skin: Negative for injury, rash, and discoloration, Psych: Negative for depression, anxiety, suicide ideation, homicidal ideation, and hallucinations, 08:58 Neuro: Positive for seizure activity, Negative for headache, Exam: 08:58 Constitutional: This is a well developed, well nourished patient who is awake, alert, rt and in no acute distress. Head/Face: Normocephalic, atraumatic. Chest/axilla: Normal chest wall appearance and motion. Nontender with no deformity. No lesions are appreciated. Cardiovascular: Regular rate and rhythm with a normal S1 and S2. No gallops, murmurs, or rubs. Normal PMI, no JVD. No pulse deficits. Respiratory: Lungs have equal breath sounds bilaterally, clear to auscultation and percussion. No rales, rhonchi or wheezes noted. No increased work of breathing, no retractions or nasal flaring. Abdomen/GI: Soft, non-tender, with normal bowel sounds. No distension or tympany. No guarding or rebound. No evidence of tenderness throughout. Skin: Warm, dry with normal turgor. Normal color with no rashes, no lesions, and no evidence of cellulitis. MS/ Extremity: Pulses equal, no cyanosis. Neurovascular intact. Full, normal range of motion. Neuro: Awake and alert, GCS 15, oriented to person, place, time, and situation. Cranial nerves II-XII grossly intact. Motor strength 5/5 in all extremities. Sensory grossly intact. Cerebellar exam normal. Normal gait. Psych: Awake, alert, with orientation to person, place and time. Behavior, mood, and affect are within normal limits. Vital Signs: 08:54 BP 125 / 81; Pulse 99; Resp 16; Pulse Ox 100% on R/A; Weight 95.25 kg; Height 6 ft. 0 iw in. ; 10:17 BP 115 / 72; Pulse 74; Resp 16; Pulse Ox 99% on R/A; iw 08:54 Body Mass Index 28.48 (95.25 kg, 182.88 cm) iw Allison Coma Score: 10:20 Eye Response: spontaneous(4). Motor Response: obeys commands(6). Verbal Response: iw oriented(5). Total: 15. MDM: 08:55 Patient medically screened. rt 09:47 Differential diagnosis: Seizure disorder, electrolyte disturbance. Data reviewed: vital rt signs, nurses notes, lab test result(s). Test considered but Not performed: CT: No trauma, pre-existing seizure disorder history, CT scan of the head not indicated. Care significantly affected by the following chronic conditions: Seizure disorder. Counseling: I had a detailed discussion with the patient and/or guardian regarding the historical points, exam findings, and any diagnostic results supporting the discharge/admit diagnosis, lab results, the need for outpatient follow up, to return to the emergency department if symptoms worsen or persist or if there are any questions or concerns that arise at home. Response to treatment: the patient's symptoms have resolved after treatment. 05/28 08:55 Order name: CBC with Diff; Complete Time: :33 rt 05/28 08:55 Order name: CMP; Complete Time: : rt Administered Medications: No medications were administered Disposition Summary: 05/28/23 09:46 Discharge Ordered Notes: Location: Home rt Problem: an acute exacerbation rt Symptoms: have improved rt Condition: Stable rt Diagnosis - Breakthrough seizure rt Followup: rt - With: Private Physician - When: 2 - 3 days - Reason: Discharge Instructions: - Discharge Summary Sheet rt - Seizure, Adult rt Forms: - Medication Reconciliation Form rt - Thank You Letter rt - Antibiotic Education rt - Prescription Opioid Use rt - Patient Portal Instructions rt - Leadership Thank You Letter rt Signatures: Dispatcher [employer] Steven Monique MD MD cha Williams, Irene, JAMES RN Deandre Lindsay MD MD rt
[2023-05-28 10:52] VITALS: BP 115/72; O2SAT 99
== END ==
LOC: ER 08:50
DX: G40.901 Epilepsy, unspecified, not intractable, with status epilepticus (principal)
CPT/HCPCS: 36415; 80053; 85025; 99284